=== PATIENT | female | born 1970 | race Caucasian/White ===

== ENCOUNTER → 2017-09-07 | Outpatient (CLI) | payer BC, OTHER ==
[~2017-09-07] MED LIST: ALPR.25T PO; ALPR1TAB2 PO; AML2.5T GT; AMLO2.5T PO; ASP81TEC PO; ASPI-266 PO; BSP10T PO; BSP5T PO; BUSP5TAB59 GT; CATHETER FLUSH 10 ML SYR IV PRN; CPR500T; CPR500T PO; DIME50TA83 PO; FLUO40CA PO; FLUO40CA12 PO; FLUOXETINE; HSCO125 PO; HYDR-3583 PO; IBP800T PO; IOHEXOL 350 MG/ML 100 ML (OMNIPAQUE 350) VIAL IV ONE; KCL10CCR; METR500T PO; NS 100 ML (IVPB) BAG IV ONE; PANT20TA2 PO; PNT40TEC PO; PRD20T PO; SRTR100T PO; ZLP10T PO; ZLP5T PO
[2017-09-07 14:24] LABS: MEAN PLATELET VOLUME 9.7 FL (7.4-10.4); RED BLOOD COUNT 4.86 10^6/uL (4.35-5.85); RED CELL DISTRIBUTION WIDTH 12.9 % (10.0-14.5); WHITE BLOOD COUNT 7.3 10^3/uL (4.3-11.0)
[2017-09-07 14:45] LABS: ALANINE AMINOTRANSFERASE 21 U/L (0-55); ALBUMIN 4.2 GM/DL (3.2-4.5); ANION GAP 10 MMOL/L (5-14); ASPARTATE AMINO TRANSFERASE 22 U/L (5-34); BILIRUBIN,TOTAL 0.5 MG/DL (0.1-1.0); BLOOD UREA NITROGEN 10 MG/DL (7-18); BUN/CREATININE RATIO 14; CALCIUM 9.3 MG/DL (8.5-10.1); CARBON DIOXIDE 25 MMOL/L (21-32); CHLORIDE 105 MMOL/L (98-107); CHOLESTEROL 210 MG/DL (< 200); CREATININE SERUM 0.74 MG/DL (0.60-1.30); DIRECT LDL 135 MG/DL (1-129); GFR ESTIMATED > 60; GLUCOSE 92 MG/DL (70-105); POTASSIUM 3.6 MMOL/L (3.6-5.0); SODIUM 140 MMOL/L (135-145); TOTAL PROTEIN 7.5 GM/DL (6.4-8.2); TRIGLYCERIDES 84 MG/DL (<150); VLDL CHOLESTEROL 17 MG/DL (5-40)
--- NOTE | 2017-09-07 15:14 | Diagnostic Imaging Report ---
PROCEDURE: CT abdomen and pelvis with contrast. TECHNIQUE: Multiple contiguous axial images were obtained through the abdomen and pelvis after administration of intravenous contrast. INDICATION: Hematuria. Left flank pain. 100 mL of Omnipaque 350 is administered intravenously. FINDINGS: The lung bases demonstrate no significant consolidation. Calcified granulomas are noted. The liver demonstrates hypodense lesions up to 8 mm in size too small to accurately characterize. Cholecystectomy clips are seen. The spleen is not enlarged. The adrenal glands and the pancreas appear unremarkable. The kidneys have symmetric enhancement and contrast excretion. There is no hydronephrosis. The abdominal aorta is normal in caliber. No para-aortic significantly enlarged lymph node is seen. There is a staple line at the base of the cecum and in the sigmoid colon region likely related to prior appendectomy and colon resection. Slightly prominent amount of luminal fluid in the colon is seen. Correlate with surgical history. The urinary bladder appears unremarkable. There is suggestion of prior hysterectomy. No significant free fluid or fluid collection in the abdomen or pelvis is seen. There is suggestion of a prior burst fracture of L1 vertebra with posterior fixation involving T11/T12 and L2 and L3 levels with posterior fusion hardware. IMPRESSION: Slightly prominent fluid content within the colon, could relate to mild colitis or gastroenteritis. Dictated by: Dictated on workstation # [id number]
== END ==
LOC: RAD 14:08
PROVIDERS: ATTEND Family Medicine
DX: R31.9 Hematuria, unspecified (principal); R10.32 Left lower quadrant pain; R53.83 Other fatigue
CPT/HCPCS: 36415; 74177; 80053; 80061; 84443; 85027

== ENCOUNTER 2019-06-24 22:34 | Emergency (ER) | payer BC ==
[~2019-06-24] VITALS: Ht 162.6 cm; Wt 71.2 kg
[~2019-06-24 22:34] MED LIST changes: -CATHETER FLUSH 10 ML SYR IV PRN; -IOHEXOL 350 MG/ML 100 ML (OMNIPAQUE 350) VIAL IV ONE; -NS 100 ML (IVPB) BAG IV ONE
[2019-06-24] MEDS ORDERED: NITROGLYCERIN 0.4 MG SL TABS BTL 25'S SL PRN (22:45)
[2019-06-24] MEDS ORDERED: ASPIRIN 81 MG CHEW (CHILDREN'S ASA) PO ONE (22:45)
[2019-06-24 22:54] LABS: BASOPHILS # (AUTO) 0.1 10^3/uL (0.0-0.1); BASOPHILS % (AUTO) 1 % (0-10); EOSINOPHILS # (AUTO) 0.4 10^3/uL (0.0-0.3); EOSINOPHILS % (AUTO) 4 % (0-10); HEMATOCRIT 39 % (35-52); LYMPHOCYTES # (AUTO) 4.5 X 10^3 (1.0-4.0); LYMPHOCYTES % (AUTO) 46 % (12-44); MEAN CORPUSCULAR HEMOGLOBIN 27 PG (25-34); MEAN CORPUSCULAR HGB CONC 33 G/DL (32-36); MEAN CORPUSCULAR VOLUME 82 FL (80-99); MEAN PLATELET VOLUME 10.3 FL (7.4-10.4); MONOCYTES # (AUTO) 0.8 X 10^3 (0.0-1.0); MONOCYTES % (AUTO) 9 % (0-12); NEUTROPHILS # (AUTO) 4.1 X 10^3 (1.8-7.8); NEUTROPHILS % (AUTO) 42 % (42-75); PLATELET COUNT 262 10^3/uL (130-400); RED CELL DISTRIBUTION WIDTH 12.8 % (10.0-14.5); WHITE BLOOD COUNT 9.9 10^3/uL (4.3-11.0)
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
[2019-06-24 23:04] LABS: INR 0.8 (0.8-1.4); PROTHROMBIN TIME PATIENT 11.8 SEC (12.2-14.7)
[2019-06-24 23:15] LABS: ALANINE AMINOTRANSFERASE 17 U/L (0-55); ALBUMIN 4.6 GM/DL (3.2-4.5); ALKALINE PHOSPHATASE 77 U/L (40-136); AMYLASE 34 U/L (25-125); BILIRUBIN,TOTAL 0.2 MG/DL (0.1-1.0); BUN/CREATININE RATIO 12; CALCIUM 9.2 MG/DL (8.5-10.1); CARBON DIOXIDE 24 MMOL/L (21-32); CHLORIDE 106 MMOL/L (98-107); CREATINE KINASE 85 U/L (29-168); GFR ESTIMATED > 60; GLUCOSE 111 MG/DL (70-105); LIPASE 68 U/L (8-78); MAGNESIUM 2.2 MG/DL (1.6-2.4); POTASSIUM 3.5 MMOL/L (3.6-5.0); SODIUM 142 MMOL/L (135-145); TOTAL PROTEIN 7.9 GM/DL (6.4-8.2)
[2019-06-24 23:22] LABS: CREATINE KINASE MB 0.9 NG/ML (<6.6)
[2019-06-25 02:25] VITALS: BP 100/64
--- NOTE | 2019-06-25 05:56 | Diagnostic Imaging Report ---
INDICATION: Chest pain. COMPARISON: 05/17/2015 FINDINGS: Single frontal view of the chest demonstrates normal heart size and pulmonary vascularity. The lungs are well aerated and clear. Few scattered calcified granuloma are noted. No large pleural effusion or pneumothorax is seen. The visualized osseous structures show no acute abnormalities. Postsurgical changes of previous thoracolumbar fusion are noted. IMPRESSION: 1. No acute cardiopulmonary process. Dictated by: Dictated on workstation # [id number]
--- NOTE | 2019-06-25 07:15 | Diagnostic Imaging Report ---
PROCEDURE: CT angiography of the chest with contrast. TECHNIQUE: Multiple contiguous axial images were obtained through the chest after uneventful bolus administration of intravenous contrast. 3D reconstructed CTA MIP acquisitions were also performed. Auto Exposure Controls were utilized during the CT exam to meet ALARA standards for radiation dose reduction. INDICATION: Chest pain The previous CT chest exam of 05/17/2015 failed to show any sign of an acute cardiopulmonary abnormality. On this study, there is still no definite defect within the pulmonary arteries to indicate a pulmonary embolus. The aorta is not abnormally dilated and there is no sign of a dissection. The heart size is within normal limits and stable when compared to the prior exam. In the interval since the previous study faint areas of increased density have developed in both lungs. These findings are nonspecific. The possibility that there is an element of mild pulmonary edema present should be considered. There is no consolidative pneumonia identified nor is there any evidence for a pleural effusion. There is no mediastinal or hilar adenopathy. The thyroid gland is generally unremarkable. There is no obvious breast mass. The sections through the upper abdomen failed to show any signs of acute abnormality. As noted on the prior exam, there has been a compression fracture of L1. In the interval since the previous study the patient has undergone a surgical procedure and there are now orthopedic fixation screws within the pedicles bilaterally at T11, T12, L2 and L3. IMPRESSION: 1. The vague areas of increased density in both lungs are nonspecific but the possibility of mild pulmonary edema should be considered. 2. There is no acute cardiopulmonary abnormality identified otherwise. In particular, there is no sign of a pulmonary embolus or of a dissection. 3. There are postsurgical and posttraumatic changes involving the thoracolumbar junction. Dictated by: Dictated on workstation # [id number]
== END 2019-06-25 02:25 | disposition home or self-care (01) ==
LOC: EDUNIT# 22:34 → ER 22:36
DX: R07.9 Chest pain, unspecified (principal); K58.9 Irritable bowel syndrome, unspecified; F31.9 Bipolar disorder, unspecified; F41.9 Anxiety disorder, unspecified; Z87.19 Personal history of other diseases of the digestive system; Z88.2 Allergy status to sulfonamides; Z90.710 Acquired absence of both cervix and uterus
CPT/HCPCS: 36415; 71045; 71275; 80053; 82150; 82550; 82553; 83690; 83735; 83874; 83880; 84484; 85025; 85610; 85730; 93005; 93041

== ENCOUNTER 2019-07-22 06:54 | Day surgery (SDC) | payer BC ==
[~2019-07-22] VITALS: Ht 163 cm; Wt 72.0 kg
[2019-07-22] VITALS (7 sets, daily range): BP systolic 101–120; BP diastolic 57–80
[2019-07-22] MEDS ORDERED: LIDOCAINE 1% INJ 20 ML 20 ML VIAL ONE (07:12)
[2019-07-22] MEDS ORDERED: HEParin (CATH LAB) 2,000 ML IV ONE (07:12)
[2019-07-22] MEDS ORDERED: NS IV 1000 ML 1,000 ML ONE (07:12)
[2019-07-22] MEDS ORDERED: NS IV 1000 ML 1,000 ML IV SCH ×2 (07:15→08:59)
[2019-07-22 07:36] LABS: MEAN PLATELET VOLUME 10.2 FL (7.4-10.4); RED CELL DISTRIBUTION WIDTH 12.9 % (10.0-14.5); WHITE BLOOD COUNT 6.5 10^3/uL (4.3-11.0)
[2019-07-22 07:37] LABS: BILIRUBIN,URINE NEGATIVE (NEGATIVE); CLARITY,URINE CLEAR; COLOR,URINE YELLOW; GLUCOSE, URINE (UA) NEGATIVE (NEGATIVE); KETONES,URINE NEGATIVE (NEGATIVE); LEUKOCYTE ESTERASE ,URINE NEGATIVE (NEGATIVE); NITRITE,URINE NEGATIVE (NEGATIVE); PH,URINE 6 (5-9); PROTEIN,URINE NEGATIVE (NEGATIVE); UROBILINOGEN,URINE NORMAL (NORMAL)
[2019-07-22 07:44] LABS: BACTERIA,URINE TRACE /HPF; SQUAMOUS EPITHELIAL CELL,UR 0-2 /HPF; WBC,URINE 0-2 /HPF
[2019-07-22] MEDS ORDERED: VERAPAMIL 5 MG/2 ML (CALAN) VIAL IV ONE (07:49)
[2019-07-22] MEDS ORDERED: MIDAZOLAM 5 MG/5 ML (VERSED) VIAL ONE (07:49)
[2019-07-22] MEDS ORDERED: HEParin 1000 UNIT/ML (10ML VIAL) FOR BOLUS ONE (07:49)
[2019-07-22] MEDS ORDERED: NITRO DRIP 25000 MCG/D5W 250 ML IV ONE (07:49)
[2019-07-22] MEDS ORDERED: fentaNYL INJECTION 100 MCG/2 ML AMP ONE (07:49)
[2019-07-22 07:53] LABS: INR 0.9 (0.8-1.4); PROTHROMBIN TIME PATIENT 12.1 SEC (12.2-14.7)
[2019-07-22 07:58] LABS: ALANINE AMINOTRANSFERASE 18 U/L (0-55); ALBUMIN 4.2 GM/DL (3.2-4.5); ALKALINE PHOSPHATASE 82 U/L (40-136); BILIRUBIN,TOTAL 0.3 MG/DL (0.1-1.0); BUN/CREATININE RATIO 19; CALCIUM 9.2 MG/DL (8.5-10.1); CARBON DIOXIDE 24 MMOL/L (21-32); CHLORIDE 105 MMOL/L (98-107); CHOLESTEROL 201 MG/DL (< 200); CREATININE SERUM 0.75 MG/DL (0.60-1.30); GFR ESTIMATED > 60; GLUCOSE 95 MG/DL (70-105); HDL CHOLESTEROL 60 MG/DL (40-60); POTASSIUM 3.6 MMOL/L (3.6-5.0); SODIUM 140 MMOL/L (135-145); TOTAL PROTEIN 7.4 GM/DL (6.4-8.2); TRIGLYCERIDES 58 MG/DL (<150); VLDL CHOLESTEROL 12 MG/DL (5-40)
--- NOTE | 2019-07-22 08:14 | Diagnostic Imaging Report ---
INDICATION: Chest pain. COMPARISON: 06/24/2019. TECHNIQUE: Single radiograph of the chest dated 07/22/2019. FINDINGS: The cardiac silhouette is within normal limits in size. No significant pulmonary vascular congestion. Calcified granuloma are again identified within the lungs bilaterally. The lungs otherwise appear clear. No pleural effusion. No pneumothorax. Post surgical changes within the thoracolumbar spine are again identified. No acute osseous abnormality. IMPRESSION: Stable examination demonstrating postsurgical and chronic findings without acute cardiopulmonary abnormality. Dictated by: Dictated on workstation # [id number]
[2019-07-22] MEDS ORDERED: meTOprolol 5 MG/5 ML (LOPRESSOR) VIAL ONE (08:47)
--- NOTE | 2019-07-22 08:59 | Cardiac Procedure Note-CS/ASA ---
Pre-Procedure Note Pre-Op Procedure Note H&P Reviewed The H&P was reviewed, patient examined and no changes noted. Date H&P Reviewed: Jul 22, 2019 Time H&P Reviewed: 08:59 Conscious Sedation Pre-Proced Time 08:59 ASA Score 3 For ASA 3 and 4: Consider anesthesia and medical clearance. Also, for patients with a history of failed moderate sedation consider anesthesia. Airway Lungs Heart ASA score ASA 1: a normal healthy patient ASA 2: a patient with a mild systemic disease (mid diabetes, controlled hypertension, obesity x ASA 3: a patient with a severe systemic disease that limits activity (angina, COPD, prior Myocardial infarction) ASA 4: a patient with an incapacitating disease that is a constant threat to life (CHF, renal failure) ASA 5: a moribund patient not expected to survive 24 hrs. (ruptured aneurysm) ASA 6: a declared brain- patient whose organs are being harvested. For emergent operations, add the letter E after the classification Mallampati Classification Grade 3 Sedation Plan Analgesia, Amnesia, Plan communicated to team members, Discussed options with patient/fam, Discussed risks with patient/fam The patient is an appropriate candidate to undergo the planned procedure, sedation, and anesthesia. The patient immediately re-assessed prior to indication. FELY SAUCEDO MD Jul 22, 2019 08:59
--- NOTE | 2019-07-22 09:03 | Cardiac Cath Report ---
Cardiac Cath Report Physician (s)/Operations Intelligence (s) Physician FELY SAUCEDO MD Pre-Procedure Diagnosis Pre-Procedure Diagnosis: Chest pain, coronary artery disease Post-Procedure Note Procedure Start Date: Jul 22, 2019 Procedure Start Time: 09:00 Name of Procedure: Left heart catheterization Left ventriculogram Aortic arch angiogram Findings/Procedure Note PROCEDURE NOTE: 49 years old lady with history of spontaneous LAD dissection 5 years ago, started to have recurrent chest pain, had an episode associated with diaphoresis, with her extensive history I decided to proceed with cardiac catheterization possible PTCA. After explaining the procedure to the patient, all pros and cons were explained, all questions were answered. The patient signed the consent and then she was placed on the cardiac catheterization laboratory. Groin was prepped SL fashion local anesthesia was used. Sheath placed in the right radial artery, Quinton catheter was used, advanced with left ventricular cavity left ventricular gram was done, pullback LV to aorta was done, pressure was measured then it was intubated to the left main system and angiogram was done. I exchanged the catheter or a long J-wire into JR catheter advanced to the right coronary artery and 90 g was done then I pulled back to the aortic arch and aortic arch angiogram was done. At the end of the procedure the sheath was removed. vascular band was used FINDINGS: Hemodynamics LV 96/9 end-diastolic pressure of 9 Aorta 90/60 mean of 68 ANATOMY: Left Main is free of obstructive disease Left Anterior Descending has mild irregularity, there is no dissection or obstructive disease Left Circumflex nonobstructive disease, large dominant artery Right Coronory Artery small nondominant artery with no obstructive disease LV Gram was done showing normal left ventricular size and systolic function estimated ejection fraction 60 percent Aorta evaluation done with aortic arch angiogram showing normal aortic arch, no dissection or aneurysm, normal origin of the innominate artery (carotid and left subclavian artery CONCLUSION: 1. Mild coronary artery disease nonobstructive disease, there is no dissection noted in the LAD 2. Dominant circumflex system 3. Normal left ventricular size and systolic function estimated ejection fraction 60 percent 4. Normal aortic arch and great vessels of the neck DISCUSSION AND RECOMMENDATION: no intervention is needed patient was reassured, noted to have hyperlipidemia with LDL 134, educated on diet, continue with exercise and weight loss and reevaluate lipid profile in 3 months then will consider initiating medical therapy Anesthesia Type: Conscious Sedation Estimated blood loss (mL): 5 ml Contrast Amount: 42 ml Total Radiation Dose: 146 mGy Post-Procedure Diagnosis Post-operative diagnosis: Chest pain Coronary artery disease Shortness of breath Hyperlipidemia FELY SAUCEDO MD Jul 22, 2019 09:03
--- NOTE | 2019-07-22 09:05 | Discharge Inst-Post CATH ---
Discharge Inst-CATH/EP Problems Reviewed?: Yes Post Cardiac Cath/EP D/C Inst Follow Up/Plan Appointment with Dr. Barrera's office in 4 weeks <b>CARDIAC CATH/EP PROCEDURE DISCHARGE INSTRUCTIONS</b> ACTIVITY * Go Home directly and rest. * Limit activity of the leg (or wrist if it was used) for 7 days including aerobics, swimming, jogging, bicycling, etc. * Restrict stair-climbing for 7 days if possible, if not, climb up with your non-cath leg, then bring together on the same step. * Avoid lifting, pushing, pulling or excessive movement of the affected extremity for 7 days. * Customary sexual activity may be resumed after 2 days-use caution not to use a position that strains or causes pain to the affected extremity. * No driving for 24 hours. * NO SMOKING. * Avoid straining for bowel movements for 7 days. * Gentle walking on level ground is allowed. * Returning to work will depend on the type of procedure and the results. Your doctor will discuss this with you. CALL YOUR DOCTOR FOR ANY OF THE FOLLOWING: *If bleeding from the puncture site occurs- Apply gentle pressure to site with clean cloth and call your doctor or EMS. * If a knot or lump forms under the skin, increases in size, or causes pain. * If bruising appears to be worsening or moving further down your leg instead of disappearing. * Temperature above 101 F. CARE OF YOUR GROIN INCISION; * Bruising or purple discoloration of the skin near the puncture site is common. * You may shower only, no bathtub bathing for 5 days. Be careful to avoid slipping as your leg may feel stiff. * If a closure device was used on your femoral artery, please see the attached guide regarding care of the device and your leg. * Leave dressing on FOR 24 hours. CARE OF YOUR WRIST INCISION; * Bruising or purple discoloration of the skin near the puncture site is common. * You may shower. * DO NOT submerge wrist. * Leave dressing on FOR 24 hours. FELY BARRERA MD Jul 22, 2019 09:04
--- NOTE | 2019-07-22 11:15 | NUR ---
discharge instructions given pt has already made follow up [place] with dr conde. site is a symptomatic.
== END 2019-07-22 11:29 | disposition home or self-care (01) ==
LOC: CATH 06:54 → ICU 10:40 → CATH 11:29
PROVIDERS: ATTEND Internal Medicine Cardiovascular Disease
DX: I25.10 Atherosclerotic heart disease of native coronary artery without angina pectoris (principal); I10 Essential (primary) hypertension; E78.5 Hyperlipidemia, unspecified; Z88.2 Allergy status to sulfonamides; Z79.899 Other long term (current) drug therapy; Z90.710 Acquired absence of both cervix and uterus; Z90.49 Acquired absence of other specified parts of digestive tract; Z90.89 Acquired absence of other organs; Z82.3 Family history of stroke; Z80.9 Family history of malignant neoplasm, unspecified; Z83.511 Family history of glaucoma
CPT/HCPCS: 36221; 36415; 71045; 80053; 80061; 81000; 85027; 85610; 85730; 87081; 93458

== ENCOUNTER → 2019-11-08 | Outpatient (CLI) | payer BC ==
--- NOTE | 2019-11-09 09:58 | Diagnostic Imaging Report ---
Indication: Routine screening. Comparison is made with prior mammogram from 12/25/2009 and 07/06/2008. 2-D and 3-D bilateral screening mammography was performed with CAD. Scattered fibroglandular densities are identified bilaterally. No mass or malignant appearing microcalcifications are identified. The axillae are unremarkable. IMPRESSION: BI-RADS Category 1 No mammographic features suspicious for malignancy are identified. ACR BI-RADS Category 1: Negative. Result letter will be mailed to the patient. Note: At least 10% of breast cancer is not imaged by mammography. Dictated by: Dictated on workstation # [id number]
== END ==
LOC: RAD 15:16
PROVIDERS: ATTEND Family Medicine
DX: Z12.31 Encounter for screening mammogram for malignant neoplasm of breast (principal)
CPT/HCPCS: 77067

== ENCOUNTER 2022-05-24 12:49 | Emergency (ER) | payer BC ==
[~2022-05-24] VITALS: Ht 162.6 cm; Wt 72.1 kg
[2022-05-24] MEDS ORDERED: ORPHENADRINE 60 MG/2 ML (NORFLEX) AMP (ED ONLY) IV ONE (14:15)
[2022-05-24] MEDS ORDERED: KETOROLAC 30 MG/ML VIAL IVP ONE (14:15)
[2022-05-24 14:20] LABS: POTASSIUM 3.7 MMOL/L (3.6-5.0)
[2022-05-24 14:21] LABS: CALCIUM 9.2 MG/DL (8.5-10.1)
[2022-05-24 14:26] LABS: CREATININE SERUM 0.79 MG/DL (0.60-1.30)
[2022-05-24] MEDS ORDERED: ACHD5005 PO (15:00)
[2022-05-24] MEDS ORDERED: METH-732 PO (15:00)
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
[2022-05-24 15:09] VITALS: BP 134/73
== END 2022-05-24 15:10 | disposition home or self-care (01) ==
LOC: EDUNIT# 12:49 → ER 12:50
DX: M54.16 Radiculopathy, lumbar region (principal); Z98.890 Other specified postprocedural states; Z28.310 Unvaccinated for COVID-19
CPT/HCPCS: 36415; 80048

== ENCOUNTER → 2023-06-30 | Outpatient (CLI) | payer BC ==
[~2023-06-30] MED LIST changes: +ACHD5005 PO; +METH-732 PO
--- NOTE | 2023-07-01 13:58 | Diagnostic Imaging Report ---
INDICATION: Routine screening. Comparison is made with prior mammogram from 11/08/2019. 2-D and 3-D bilateral screening mammography was performed with CAD. Scattered fibroglandular densities are identified bilaterally. The parenchymal pattern is stable. No mass or malignant-appearing microcalcifications are seen. Axillae are unremarkable. IMPRESSION: No mammographic features suspicious for malignancy are identified. ACR BI-RADS Category 1: Negative. Result letter will be mailed to the patient. Note: At least 10% of breast cancer is not imaged by mammography. BI-RADS Category 1 Dictated by: Dictated on workstation # [id number]
== END ==
LOC: RAD 15:30
PROVIDERS: ATTEND Family Medicine
DX: Z12.31 Encounter for screening mammogram for malignant neoplasm of breast (principal)
CPT/HCPCS: 77063; 77067

== ENCOUNTER 2023-08-02 20:12 | Emergency (ER) | payer BC ==
[~2023-08-02] VITALS: Ht 162 cm; Wt 70.0 kg
--- NOTE | 2023-08-02 20:58 | Diagnostic Imaging Report ---
Indication: Fall with right wrist pain AP, oblique, and lateral views of the right wrist are obtained at 0854 p.m. There is a displaced fracture of the distal radius, with dorsal displacement of the distal fragment with intra-articular extension. There is an ulnar styloid avulsion. Impression: Displaced distal radial fracture with intra-articular extension. Ulnar styloid avulsion. Dictated by: Dictated on workstation # [id number]
[2023-08-02] MEDS ORDERED: ONDANSETRON 4 MG ORAL DISSOLVE TABLET PO STA (21:21)
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
[2023-08-02] MEDS ORDERED: HYDROcodone/ACETAMINOPHEN 7.5 MG/325 MG TABLET PO ONE (21:30)
[2023-08-02] MEDS ORDERED: LIDOCAINE 1% INJ 20 ML VIAL INJ ONE (21:30)
[2023-08-02] MEDS ORDERED: LIDOCAINE 1% INJ 10 ML VIAL ONE (21:39)
[2023-08-02] MEDS ORDERED: fentaNYL INJECTION 100 MCG/2 ML VIAL IM ONE (23:00)
[2023-08-02] MEDS ORDERED: ONDA4TAB11 SL (23:34)
[2023-08-02] MEDS ORDERED: OXYC1TAB11 PO (23:34)
[2023-08-02] MEDS ORDERED: RX-OXYCODONE/APAP 5-325 MG #4 TAB PK PO PRN (23:45)
[2023-08-02 23:49] VITALS: BP 127/76
--- NOTE | 2023-08-03 08:38 | Diagnostic Imaging Report ---
INDICATION: Pain, fracture, post reduction. COMPARISON: Imaging from this same date. TECHNIQUE: Two radiographs of the right wrist dated 08/02/2023. FINDINGS: Interval splinting and reduction of the previously noted distal radial and ulnar styloid fractures. Persistent half shaft width posterior displacement of the distal radial fracture remains with associated dorsal tilt. Persisting lateral displacement is also noted. Slight distraction of the ulnar styloid fracture is again noted. No new fracture or dislocation. IMPRESSION: Interval reduction and splinting of the previously noted distal radial fracture with persistent posterior displacement and dorsal tilt. Slightly distracted ulnar styloid fracture. Dictated by: Dictated on workstation # [id number]
== END 2023-08-02 23:49 | disposition home or self-care (01) ==
LOC: EDUNIT# 20:12 → ER 20:14
DX: S52.571A Other intraarticular fracture of lower end of right radius, initial encounter for closed fracture (principal); S52.611A Displaced fracture of right ulna styloid process, initial encounter for closed fracture; W18.40XA Slipping, tripping and stumbling without falling, unspecified, initial encounter; Y92.009 Unspecified place in unspecified non-institutional (private) residence as the place of occurrence of the external cause
CPT/HCPCS: 25605; 73100; 73110; 99284; L3650